=== PATIENT | female | born 2005 | race Caucasian/White ===

== ENCOUNTER 2024-12-12 11:51 | Emergency (ER) | payer SELFPAY ==
[2024-12-12 12:02] VITALS: BMI 23.3
[2024-12-12] MEDS ORDERED: FAMOTIDINE 20 MG/50 ML IVPB 20 MG/50 ML MG IVPB ONE (13:00)
[2024-12-12] MEDS: SODIUM CHLORIDE 0.9% 500 ML INFUS.BAG IV ONE (13:25)
[2024-12-12] MEDS: FAMOTIDINE 20 MG/50 ML IVPB 20 MG/50 ML MG IVPB ONE (13:25)
[2024-12-12 13:41] LABS: EPI CELLS >36 /uL (0-25.1); HYALINE CASTS 2 /uL (0-3.1); URINE BACTERIA 3889 /uL (0-1359); URINE BILIRUBIN NEGATIVE (NEGATIVE); URINE COLOR YELLOW; URINE GLUCOSE (UA) NEGATIVE (NEGATIVE); URINE KETONE TRACE (NEGATIVE); URINE LEUK ESTERASE 2+ (NEGATIVE); URINE NITRITE NEGATIVE (NEGATIVE); URINE PROTEIN NEGATIVE (NEGATIVE); URINE RBC 11 /uL (0-23.9); URINE UROBILINOGEN 0.2 mg/dL (0.2-1.0); URINE WBC 110 /uL (0-25.8)
[2024-12-12 13:42] LABS: URINE APPEARANCE CLEAR
[2024-12-12 13:50] LABS: ABSOLUTE IMMATURE GRANULOCYTES 0.05 x10^3/uL (0.0-0.031); BASOPHILS # 0.03 x10^3/uL (0.01-0.08); EOSINOPHIL % 3.8 % (0.7-5.8); EOSINOPHILS # 0.34 x10^3/uL (0.04-0.36); HEMATOCRIT 36.9 % (34.1-44.9); HEMOGLOBIN 12.1 g/dL (11.2-15.7); MCHC 32.8 g/dl (32.2-35.5); MEAN PLT VOLUME 9.7 fl (9.4-12.3); MONOCYTE # 0.51 x10^3/uL (0.24-0.86); MONOCYTE % 5.7 % (4.7-12.5); PLATELET COUNT 275 x10^3/uL (182-369); RDW 14.6 % (12.1-16.5)
[2024-12-12 14:11] LABS: POTASSIUM 3.6 mmol/L (3.5-5.1)
[2024-12-12 14:13] LABS: CALCIUM 9.5 mg/dL (8.5-10.1)
[2024-12-12 14:14] LABS: ALBUMIN 3.3 g/dl (3.4-5.0); BLOOD UREA NITROGEN 4.7 mg/dL (7-18)
[2024-12-12 14:17] LABS: CREATININE 0.5 mg/dL (0.55-1.3)
[2024-12-12 14:18] LABS: BILIRUBIN,TOTAL 0.2 mg/dL (0.2-1)
[2024-12-12 14:22] LABS: TOT PROT 6.2 g/dl (6.4-8.2)
[2024-12-12 15:12] LABS: HCV DIAGNOSTIC IN-HOUSE W/RFLX NON-REACTIVE (NONREACTIVE); HIV INTERPRETATION NEGATIVE (NEGATIVE)
[2024-12-12 15:32] VITALS: BP 107/64; PULSE 87; RESP 18; TEMP 98.5
== END 2024-12-12 16:48 | disposition home or self-care (01) ==
LOC: JER 11:51
PROC: 3E033GC Introduction of Other Therapeutic Substance into Peripheral Vein, Percutaneous Approach (ICD-10-PCS; principal; 2024-12-12)
DX: O26.891 Other specified pregnancy related conditions, first trimester (principal); R10.30 Lower abdominal pain, unspecified; R42 Dizziness and giddiness; O99.891 Other specified diseases and conditions complicating pregnancy; R00.0 Tachycardia, unspecified; Z3A.11 11 weeks gestation of pregnancy
CPT/HCPCS: 36415; 76801-TC; 80053; 81003; 83690; 84702; 85025; 86803; 87086; 87389; 99285-25